=== PATIENT | female | born 1985 | race Caucasian/White ===

== ENCOUNTER 2017-01-03 11:43 | Outpatient (CLI) | payer MEDICAID | END 2017-01-03 11:44 | disposition home or self-care (01) | DX: M25.561 Pain in right knee (principal) ==

== ENCOUNTER 2017-01-24 12:00 | Emergency (ER) | payer MEDICAID ==
--- NOTE | 2017-01-24 13:46 | ED Physician Documentation ---
PD HPI LOWER EXT INJURY - Stated complaint Stated Complaint: KNEE PAIN - Chief complaint Chief Complaint: Ext Problem - History obtained from History obtained from: Patient - History of Present Illness PD HPI LOW EXT INJURY LOCATION: Right, Knee Type of injury: Twist Where injury occurred: Work Timing - duration: Days Timing - details: Abrupt onset, Still present Worsened by: Moving, Palpating (feels crepitant feeling.) Associated symptoms: No: Weakness, Numbness Recently seen: Clinic (had an xray which looked okay) Review of Systems Constitutional: denies: Fever, Chills Skin: denies: Rash, Lesions Neurologic: denies: Focal weakness, Numbness PD PAST MEDICAL HISTORY - Past Medical History Past Medical History: Yes Other Past Medical History: seizure when she was 11 - Past Surgical History 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 - Present Medications Home Medications: Ambulatory Orders Medication Instructions Recorded Confirmed Calcitriol [Rocaltrol] 0.25 mcg PO DAILY 07/26/16 07/26/16 Magnesium 250 mg PO 07/26/16 Medroxyprogesterone Acetate 150 mg IM 07/26/16 07/26/16 [Depo-Provera] Potassium Chloride 20 meq PO 07/26/16 Dexamethasone [Decadron] 4 mg PO DAILY #5 tablet 01/24/17 Naproxen 375 mg PO BID #20 tablet 01/24/17 Tramadol HCl 50 mg PO Q6H PRN #20 tablet 01/24/17 - Allergies Allergies/Adverse Reactions: Allergies Allergy/AdvReac Type Severity Reaction Status Date / Time diphenhydramine HCl * Allergy Respiratory Verified 01/24/17 13:30 [From Benadryl] - Social History Does the pt smoke?: Yes Smoking Status: Current every day smoker Does the pt drink ETOH?: No Does the pt have substance abuse?: No - Immunizations Immunizations are current?: Yes - POLST Patient has POLST: No PD ED PE NORMAL - Vitals Vital signs reviewed: Yes - General General: Alert and oriented X 3, No acute distress, Well developed/nourished - Derm Derm: Normal color, Warm and dry, No rash - Extremities Extremities: Other (Crepitance with ROM feeling like tendonitis. ) - Neuro Neuro: Alert and oriented X 3, No motor deficit, No sensory deficit, Normal speech, Other (no effusion) Results - Vitals Vitals: Oxygen O2 Source Room air PD MEDICAL DECISION MAKING - ED course Complexity details: reviewed old records Departure - Departure Disposition: 01 Home, Self Care Clinical Impression: Patellar tendinitis of right knee Condition: Stable Record reviewed to determine appropriate education?: Yes Instructions: Kneecap Probs Common Follow-Up: Sebastian Lyn PA-C [Primary Care Provider] - Prescriptions: Dexamethasone [Decadron] 4 mg PO DAILY #5 tablet Naproxen 375 mg PO BID #20 tablet Tramadol HCl 50 mg PO Q6H PRN #20 tablet PRN Reason: Pain Comments: Use the knee brace with limited range of motion when up and around for the next week. Naproxen twice daily and Decadron daily as directed for inflammation and pain. Add Tylenol 4 times daily and/or Tramadol as needed for pains. Recheck if not better over the next week or so. Discharge Date/Time: 01/24/17 14:41
[2017-01-24] MEDS ORDERED: NAPROXEN 250 MG TABLET PO STA (14:11)
[2017-01-24] MEDS ORDERED: traMADol 50 MG TABLET PO STA (14:11)
[2017-01-24] MEDS ORDERED: NAPROXEN 250 MG TABLET PO ONE (14:14)
[2017-01-24] MEDS ORDERED: traMADol 50 MG TABLET PO ONE (14:14)
[2017-01-24 14:41] VITALS: BP 132/89
== END 2017-01-24 14:41 | disposition home or self-care (01) ==
LOC: ED 12:00
DX: M76.51 Patellar tendinitis, right knee (principal); X50.0XXA Overexertion from strenuous movement or load, initial encounter; Y99.0 Civilian activity done for income or pay; F17.200 Nicotine dependence, unspecified, uncomplicated
CPT/HCPCS: 99283; A9270

== ENCOUNTER 2017-05-31 12:08 | Emergency (ER) | payer MEDICAID ==
--- NOTE | 2017-05-31 12:56 | ED Physician Documentation ---
PD HPI URI - Stated complaint Stated Complaint: CONGESTION/HEADACHE - Chief complaint Chief Complaint: Resp - History obtained from History obtained from: Patient - History of Present Illness Timing duration: Days Timing details: Gradual onset, Still present Associated symptoms: Fever, Chills, Nasal congestion, Sinus pain (frontal and behind eyes), Sore throat. No: NVD Contributing factors: No: Sick contact, Travel, COPD / asthma Recently seen: Not recently seen Review of Systems Constitutional: reports: Fever, Chills, Myalgias Eyes: denies: Decreased vision, Photophobia Ears: reports: Ear pain (right) Nose: reports: Congestion, Sinus pressure / pain Throat: reports: Sore throat Respiratory: denies: Cough GI: denies: Nausea, Vomiting, Diarrhea Skin: denies: Rash, Lesions Neurologic: reports: Headache (frontal and behind eyes). 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 - Present Medications Home Medications: Ambulatory Orders Medication Instructions Recorded Confirmed Calcitriol [Rocaltrol] 0.25 mcg PO DAILY 07/26/16 05/31/17 Magnesium 250 mg PO DAILY 07/26/16 05/31/17 Potassium Chloride 20 meq PO DAILY 07/26/16 05/31/17 Tramadol HCl 50 mg PO Q6H PRN #20 tablet 01/24/17 05/31/17 Amoxicillin 500 mg PO TID #20 capsule 05/31/17 Cetirizine [ZyrTEC] 10 mg PO DAILY #20 tablet 05/31/17 Dexamethasone [Decadron] 4 mg PO DAILY #5 tablet 05/31/17 Fluticasone [Flonase] 1 sprays AYAZ BID #1 bottle 05/31/17 Vitamin B Complex [Balanced B-50] 1 each PO DAILY 05/31/17 05/31/17 - Allergies Allergies/Adverse Reactions: Allergies Allergy/AdvReac Type Severity Reaction Status Date / Time diphenhydramine HCl * Allergy Severe Respiratory Verified 05/31/17 12:19 [From Benadryl] - Social History Does the pt smoke?: Yes Smoking Status: Current every day smoker Does the pt drink ETOH?: No Does the pt have substance abuse?: No - Immunizations Immunizations are current?: Yes - POLST Patient has POLST: No PD ED PE NORMAL - Vitals Vital signs reviewed: Yes - General General: Alert and oriented X 3, No acute distress, Well developed/nourished - HEENT HEENT: PERRL (not light sensitive), EOMI, Ears normal, Pharynx benign - Neck Neck: Supple, no meningeal sign, No adenopathy - Cardiac Cardiac: RRR (mildly tachycardic, regular), No murmur - Respiratory Respiratory: Clear bilaterally - Derm Derm: Normal color, Warm and dry, No rash - Neuro Neuro: Alert and oriented X 3, 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 ), d/w patient Departure - Departure Disposition: 01 Home, Self Care Clinical Impression: Sinusitis, acute Qualifiers: Sinusitis location: ethmoidal Recurrence: non-recurrent Qualified Code(s): J01.20 - Acute ethmoidal sinusitis, unspecified Condition: Stable Record reviewed to determine appropriate education?: Yes Instructions: ED Sinusitis Abx Tx Prescriptions: Amoxicillin 500 mg PO TID #20 capsule Cetirizine [ZyrTEC] 10 mg PO DAILY #20 tablet Dexamethasone [Decadron] 4 mg PO DAILY #5 tablet Fluticasone [Flonase] 1 sprays AYAZ BID #1 bottle Comments: Drink lots of fluids. Saline nasal spray to help cleanse the nasal passage. Decadron daily for several days for inflammation and then start Flonase steroid nose spray to continue for a couple weeks. Cetirizine daily for a couple weeks. Amoxicillin as directed for likely infection. Recheck if not improved over the next few days. Tylenol if needed for pains. Discharge Date/Time: 05/31/17 13:45
[2017-05-31] MEDS ORDERED: ACETAMINOPHEN 325 MG TABLET PO ONE (13:29)
[2017-05-31] MEDS ORDERED: CHERRY SYRUP 10 ML UDC PO ONE (13:30)
[2017-05-31] MEDS: ACETAMINOPHEN 325 MG TABLET PO STA (13:30)
[2017-05-31] MEDS: DEXAMETHASONE 10 MG/ML VIAL PO STA (13:30)
[2017-05-31] MEDS ORDERED: AMOXICILLIN 250 MG CAPSULE PO ONE (13:30)
[2017-05-31] MEDS ORDERED: CETIRIZINE 10 MG TABLET ONE (13:30)
[2017-05-31] MEDS: AMOXICILLIN 250 MG CAPSULE PO STA (13:30)
[2017-05-31] MEDS ORDERED: DEXAMETHASONE 10 MG/ML VIAL ONE (13:30)
[2017-05-31] MEDS: CETIRIZINE 10 MG TABLET PO STA (13:31)
[2017-05-31 13:45] VITALS: BP 129/84
== END 2017-05-31 13:45 | disposition home or self-care (01) ==
LOC: ED 12:08
DX: J01.20 Acute ethmoidal sinusitis, unspecified (principal); F17.200 Nicotine dependence, unspecified, uncomplicated
CPT/HCPCS: 99283

== ENCOUNTER 2017-09-30 20:59 | Emergency (ER) | payer MEDICAID ==
[2017-09-30 21:08] VITALS: BP 132/91
--- NOTE | 2017-09-30 21:41 | ED Physician Documentation ---
PD HPI FEMALE - Stated complaint Stated Complaint: FEMAL - Chief complaint Chief Complaint: General - History obtained from History obtained from: Patient, Family - History of Present Illness Timing - onset: Yesterday Timing - details: Gradual onset, Still present Associated symptoms: Pelvic pain, Vaginal bleeding Similar symptoms before: Has not had sx before Recently seen: Not recently seen - Additional information Additional information: Patient is a 32 year old female presenting to the emergency department for vaginal bleeding. patient states that her period was last week but only lasted two days before stopping. Patient states that she had intercourse and then her period started again so she was worried she might be even though she is on control. Review of Systems Constitutional: denies: Fever, Chills Eyes: reports: Reviewed and negative Ears: reports: Reviewed and negative Nose: reports: Reviewed and negative Throat: reports: Reviewed and negative Cardiac: reports: Reviewed and negative Respiratory: reports: Reviewed and negative GI: reports: Reviewed and negative : reports: Vaginal bleeding, Irregular menses. 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 - Present Medications Home Medications: Ambulatory Orders Medication Instructions Recorded Confirmed Calcitriol [Rocaltrol] 0.25 mcg PO DAILY 07/26/16 05/31/17 Magnesium 250 mg PO DAILY 07/26/16 05/31/17 Potassium Chloride 20 meq PO DAILY 07/26/16 05/31/17 Tramadol HCl 50 mg PO Q6H PRN #20 tablet 01/24/17 05/31/17 Amoxicillin 500 mg PO TID #20 capsule 05/31/17 Cetirizine [ZyrTEC] 10 mg PO DAILY #20 tablet 05/31/17 Dexamethasone [Decadron] 4 mg PO DAILY #5 tablet 05/31/17 Fluticasone [Flonase] 1 sprays AYAZ BID #1 bottle 05/31/17 Vitamin B Complex [Balanced B-50] 1 each PO DAILY 05/31/17 05/31/17 - Allergies Allergies/Adverse Reactions: Allergies Allergy/AdvReac Type Severity Reaction Status Date / Time diphenhydramine HCl * Allergy Severe Respiratory Verified 09/30/17 21:10 [From Benadryl] - Social History Does the pt smoke?: Yes Smoking Status: Current every day smoker Does the pt drink ETOH?: No Does the pt have substance abuse?: No - Immunizations Immunizations are current?: Yes - POLST Patient has POLST: No PD ED PE NORMAL - Vitals Vital signs reviewed: Yes - General General: Alert and oriented X 3, No acute distress - HEENT HEENT: Atraumatic, Moist mucous membranes - Cardiac Cardiac: RRR, No murmur - Respiratory Respiratory: No respiratory distress - Abdomen Abdomen: Soft, Non distended - Derm Derm: Normal color, Warm and dry - Extremities Extremities: No deformity, No edema - Neuro Neuro: Alert and oriented X 3, No motor deficit, Normal speech - Psych Psych: Normal mood PD ED PE EXPANDED - General General: Alert, Anxious Results - Vitals Vitals: Vital Signs - 24 hr 09/30/17 21:04 Temperature 36.1 C L Heart Rate 84 Respiratory 18 Rate Blood Pressure 132/91 H O2 Saturation 98 Oxygen O2 Source Room air - Labs Labs: Laboratory Tests 09/30/17 21:14 Urine Color LT RED Urine Clarity CLOUDY Urine pH 6.0 Ur Specific Drift 1.025 Urine Protein 100 H Urine Glucose (UA) NEGATIVE Urine Ketones NEGATIVE Urine Occult Blood LARGE H Urine Nitrite NEGATIVE Urine Bilirubin NEGATIVE Urine Urobilinogen 0.2 (NORMAL) Ur Leukocyte Esterase NEGATIVE Urine RBC TNTC H Urine WBC 0-3 Ur Squamous Epith Cells MANY Squamous H Urine Bacteria None Seen Ur Microscopic Review INDICATED Urine Culture Comments NOT INDICATED Urine HCG, Qual NEGATIVE PD MEDICAL DECISION MAKING - ED course Complexity details: reviewed old records, reviewed results, re-evaluated patient , considered differential, d/w patient ED course: Patient was seen and examined at bedside. Patient was well appearing and in no distress. Urine was collected and showed no signs of . patient required no further work up and was stable for discharge with outpatient follow up. Departure - Departure Disposition: 01 Home, Self Care Clinical Impression: Dysfunctional uterine bleeding Condition: Good Instructions: ED Bleed Irregular Vaginal, ED Cramping Menstrual Follow-Up: primary,care provider [Other] Comments: Your diagnostic results today were within normal limits. You are not , and it is not unusual to have irregular bleeding. 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
[2017-09-30 21:50] LABS: BILIRUBIN,URINE NEGATIVE (NEGATIVE); GLUCOSE, URINE (UA) NEGATIVE (NEGATIVE); KETONES,URINE (UA) NEGATIVE (NEGATIVE); LEUKOCYTE ESTERASE, URINE NEGATIVE (NEGATIVE); NITRITE,URINE NEGATIVE (NEGATIVE); OCCULT BLOOD,URINE LARGE (NEGATIVE); PROTEIN,URINE 100 mg/dL (NEGATIVE); UROBILINOGEN,URINE 0.2 (NORMAL) E.U./dL (NORMAL)
[2017-09-30 21:57] LABS: CLARITY,URINE CLOUDY (CLEAR); HCG UR QUAL NEGATIVE
[2017-09-30 21:59] LABS: BACTERIA,URINE None Seen /HPF (None Seen); RBC,URINE TNTC /HPF (0-5); SQUAMOUS EPITHELIAL CELL,UR MANY Squamous (<= Few)
== END 2017-09-30 22:09 | disposition home or self-care (01) ==
LOC: ED 20:59
DX: N93.8 Other specified abnormal uterine and vaginal bleeding (principal); F17.200 Nicotine dependence, unspecified, uncomplicated
CPT/HCPCS: 81001; 81003; 81025; 87086; 99283

== ENCOUNTER 2017-11-07 10:55 | Outpatient (CLI) | payer MEDICAID | END 2017-11-07 10:56 | disposition home or self-care (01) | LOC: LAB.R 10:55 | PROVIDERS: ATTEND Obstetrics & Gynecology | DX: N89.8 Other specified noninflammatory disorders of vagina (principal); Z11.3 Encounter for screening for infections with a predominantly sexual mode of transmission | CPT/HCPCS: 87480; 87491; 87510; 87591; 87660 ==